=== PATIENT | male | born 1990 | race African-American/Black ===

== ENCOUNTER 2023-11-22 02:33 | Emergency (ER) | payer SELFPAY ==
[~2023-11-22] VITALS: Ht 167.6 cm; Wt 70.0 kg
[2023-11-22 02:55] VITALS: BP 109/77; PULSE 65; RESP 18; TEMP 98.9; O2SAT 100
== END 2023-11-22 14:51 | disposition left against medical advice (07) ==
LOC: ER 02:33
DX: K08.89 Other specified disorders of teeth and supporting structures (principal); Z53.21 Procedure and treatment not carried out due to patient leaving prior to being seen by health care provider
CPT/HCPCS: 99281